=== PATIENT | female | born 1985 | race Caucasian/White ===

== ENCOUNTER 2019-01-03 12:07 | Inpatient (IN) | payer SELFPAY ==
[2019-01-03 12:51] VITALS: BMI 24.9
[2019-01-03] MEDS ORDERED: hydrALAZINE 20 MG/ML VIAL SLOW IVP PRN ×2 (13:22→23:06)
[2019-01-03] MEDS ORDERED: Ondansetron PF 4 MG/2 ML Vial IVP PRN ×3 (13:22→23:06)
[2019-01-03] MEDS ORDERED: Promethazine HCl 25 MG/ML VIAL IM PRN ×2 (13:22→18:53)
[2019-01-03] MEDS ORDERED: NS / Oxytocin 40 units/1000ml 1,000 ML IV PRN (13:29)
[2019-01-03] MEDS ORDERED: Bicitra 30 ML UDCUP PO SCH (13:30)
[2019-01-03] MEDS ORDERED: Penicillin G Potassium 5 MILL.UNITS in Sodium Chloride 0.9% 100 ML IVPB SCH (13:30)
[2019-01-03] MEDS: Lactated Ringer's 1,000 ML IV SCH ×2 (13:58→16:24)
[2019-01-03 14:54] LABS: Hemoglobin 11.3 g/dL (12.0-16.0); Mean Corpuscular HGB CONC 34.8 g/dL (32.0-36.0); Mean Corpuscular Hemoglobin 33.2 pg (27.0-31.0); Mean Corpuscular Volume 95.6 fL (78.0-98.0); White Blood Cell (WBC) Count 11.1 thou/uL (4.8-10.8)
[2019-01-03 15:14] LABS: HBSAg Index 0.16 S/CO (0-0.99); Hep B Surf Ag Non-Reactive S/CO (NonReactive)
[2019-01-03 15:15] LABS: Syphilis Antibody Nonreactive (Nonreactive); Syphilis Antibody Index 0.04 S/CO (<1.00 Non-Reactive)
[2019-01-03 15:20] LABS: Mean Platelet Volume 9.6 fL (7.4-10.4); Platelet Count 134 thou/uL (130-400); RBC Distribution Width 12.7 % (11.5-14.5)
[2019-01-03] MEDS ORDERED: Azithromycin 500 MG in Sodium Chloride 0.9% 250 ML 250 ML IVPB SCH (15:45)
[2019-01-03] MEDS ORDERED: CEFAZOLIN 2 GM in Premix Bag 1 BAG IVPB SCH (16:30)
[2019-01-03] MEDS: Penicillin G 2.5 MILL.units 2.5 MILL.UNITS in Premix Bag 1 BAG IVPB SCH (18:03)
[2019-01-03] MEDS ORDERED: Oxytocin 10 UNITS/ML VIAL ONE ×2 (18:44→19:24)
[2019-01-03] MEDS ORDERED: MORPHINE 5 MG/10 ML PF VIAL ONE (18:44)
[2019-01-03] MEDS ORDERED: Ondansetron PF 4 MG/2 ML Vial ONE (18:44)
[2019-01-03] MEDS ORDERED: ePHEDrine/0.9% NaCl/PF SYRINGE 50 mg/10 ml ONE (18:44)
[2019-01-03] MEDS ORDERED: Promethazine HCl 25 MG SUPP PR PRN (18:53)
[2019-01-03] MEDS ORDERED: diphenhydrAMINE 50 MG/ML VIAL IVP PRN (18:53)
[2019-01-03] MEDS ORDERED: Meperidine HCl/PF 25 MG/ML VIAL SLOW IVP PRN (18:53)
[2019-01-03] MEDS ORDERED: Naloxone HCl 0.4 mg/ml Vial IVP PRN ×2 (18:53)
[2019-01-03] MEDS ORDERED: Ketorolac Tromethamine 30 MG/ML VIAL IVP PRN (18:53)
[2019-01-03] MEDS ORDERED: HYDROmorphone 2 MG/ML VIAL SLOW IVP PRN (18:53)
[2019-01-03] MEDS ORDERED: Naloxone HCl 0.4 mg/ml Vial IV PRN (18:53)
[2019-01-03] MEDS ORDERED: Ondansetron HCl/PF 4 MG/2 ML Vial IVP PRN (18:53)
[2019-01-03] MEDS ORDERED: L&D-Morphine 4 MG/ML VIAL SLOW IVP PRN (18:53)
[2019-01-03] MEDS ORDERED: Communication Order-Pharmacy FS SCH (19:00)
[2019-01-03] MEDS ORDERED: Ketorolac Tromethamine 30 MG/ML VIAL IVP SCH (19:00)
[2019-01-03] MEDS ORDERED: PHENYLEPHRINE-NS 100 MCG/ML 10 ML SYRINGE ONE (19:08)
[2019-01-03] MEDS ORDERED: Dexamethasone 4 mg/ml Vial ONE (19:13)
[2019-01-03] MEDS ORDERED: Lanolin Ointment 7 GM TUBE TOP PRN (23:06)
[2019-01-03] MEDS ORDERED: diphenhydrAMINE 25 MG CAP PO PRN (23:06)
[2019-01-03] MEDS ORDERED: NS / Oxytocin 40 units/1000ml 1,000 ML IV SCH (23:06)
[2019-01-03] MEDS ORDERED: Simethicone Chewable 80 MG TAB PO PRN (23:06)
[2019-01-04] MEDS: Lactated Ringer's 1,000 ML IV SCH (02:08)
[2019-01-04 04:40] LABS: Hemoglobin 10.8 g/dL (12.0-16.0); Mean Corpuscular HGB CONC 34.8 g/dL (32.0-36.0); Mean Corpuscular Hemoglobin 33.5 pg (27.0-31.0); Mean Corpuscular Volume 96.3 fL (78.0-98.0); Mean Platelet Volume 9.9 fL (7.4-10.4); Platelet Count 121 thou/uL (130-400); RBC Distribution Width 12.7 % (11.5-14.5); Red Blood Cell (RBC) Count 3.23 mill/uL (4.20-5.40); White Blood Cell (WBC) Count 16.3 thou/uL (4.8-10.8)
[2019-01-04] MEDS ORDERED: Sodium Chloride 0.9% 10 ML ONE (05:46)
[2019-01-04] MEDS ORDERED: HYDROcodone/Acetaminophen 5/325 mg Tablet PO PRN (07:00)
[2019-01-04] MEDS ORDERED: Adacel (T-DAP) 0.5 ML SYRINGE IM ONE (09:00)
[2019-01-04] MEDS: Ferrous Sulfate 325 MG TAB PO SCH (09:30)
[2019-01-04] MEDS: Docusate Calcium (SURFAK) 240 MG CAP PO SCH ×2 (09:31→19:28)
[2019-01-04] MEDS: Prenatal Vitamin 1 TAB PO SCH (09:31)
[2019-01-04] MEDS: Penicillin G 2.5 MILL.units 2.5 MILL.UNITS in Premix Bag 1 BAG IVPB SCH (10:36)
[2019-01-04] MEDS: Ibuprofen 800 MG TAB PO SCH ×2 (12:38→20:56)
[2019-01-04] MEDS: HYDROcodone/Acetaminophen 5/325 mg Tablet PO PRN (19:27)
[2019-01-04] MEDS ORDERED: Phenazopyridine HCl 97.5 MG TABLET PO SCH (23:45)
[2019-01-05] MEDS: HYDROcodone/Acetaminophen 5/325 mg Tablet PO PRN ×3 (00:09→13:46)
[2019-01-05] MEDS: Ferrous Sulfate 325 MG TAB PO SCH ×2 (00:15→10:06)
[2019-01-05] MEDS: Ibuprofen 800 MG TAB PO SCH ×2 (06:09→13:46)
[2019-01-05] MEDS ORDERED: Phenazopyridine HCl 97.5 MG TABLET PO SCH (09:00)
[2019-01-05] MEDS: Docusate Calcium (SURFAK) 240 MG CAP PO SCH (10:05)
[2019-01-05] MEDS: Prenatal Vitamin 1 TAB PO SCH ×2 (10:06→10:32)
[2019-01-05] MEDS: Phenazopyridine HCl 97.5 MG TABLET PO SCH ×2 (10:11→16:04)
[2019-01-05 12:21] VITALS: BP 115/64; TEMP 98.5
--- NOTE | 2019-01-05 14:46 | OP ---
DATE OF PROCEDURE: 01/03/2019 RESIDENT SURGEON: Tea Lugo DO PREOPERATIVE DIAGNOSES: 1. Term intrauterine at 38 and 5/7th weeks. 2. Prior x2. 3. Spontaneous rupture of membranes (SROM). 4. Active labor. 5. Multiparity, desires permanent sterilization. POSTOPERATIVE DIAGNOSES: 1. Term intrauterine at 38 and 5/7th weeks. 2. Prior x2. 3. Spontaneous rupture of membranes (SROM). 4. Active labor. 5. Uterine scar dehiscence. PROCEDURES PERFORMED: 1. Repeat low transverse section. 2. Risk reduction, bilateral salpingectomy. ANESTHESIA: Spinal catheterization. FINDINGS: 1. Prior laboring with abdominal pain. 2. Uterine scar dehiscence. 3. Vigorous male infant, 7 pounds 1 ounce, Apgars 8 and 9. 4. Normal fallopian tubes and ovaries. COMPLICATIONS: None. SPECIMENS REMOVED: 1. Cord blood. 2. Bilateral fallopian tubes. BLOOD LOSS: Less than 400 mL. HISTORY AND INDICATIONS: Mrs. Elmira Rodriguez is a very pleasant 33-year-old white female, 5, para 2-0-2-2, who has followed in my clinic for obstetric care. Her has been complicated by thrombophilia with positive ACLA, Rh-negative blood type, positive group B strep, and prior x2Florencio Ku presented to the office on the morning of 01/03/2019. She had leakage of fluid after cervical examination and spontaneous rupture of membranes (SROM) was confirmed. She was admitted, was sent to Labor and Delivery for admission and monitoring. Throughout the afternoon, she began to contract and experience abdominal pain. There was a significant delay in performing her repeat secondary to anesthesia unavailability. The patient was taken to the OR on the evening of 01/03/2019. Surgical disclosures were signed and placed in the chart. Questions were answered to the patient's family satisfaction. DESCRIPTION OF PROCEDURE: After thorough consent and counseling, Mrs. Rodriguez was taken to the operating room and adequate level of anesthesia was obtained via spinal catheterization. The patient was then prepped and draped in usual sterile fashion for abdominal surgery. A Roy was placed in the bladder, which was noted to be draining clear urine. Attention was then turned to performing the outlined surgical procedure. A team time-out was performed per protocol. A Pfannenstiel incision was made, and the old scar was excised. The incision was carried sharply to the fascia, which was also sharply incised. The midline was identified, and the rectus muscles were retracted laterally. The abdominoperitoneal cavity was entered with usual safeguards carried out. A retractor was placed. It was noted that there was a significant uterine scar dehiscence with a peritoneal window noted. The scar had on the right-hand side, which is where the patient was complaining of "stabbing" abdominal pain. There was a 50% separation. A bladder flap was created on the vesicouterine peritoneum, and a bladder blade was then placed. Upon entering the amniotic sac, scant amount of clear amniotic fluid was visualized. The was noted to be vertex presentation in the occiput anterior position. Head was delivered, and baby was bulb suctioned on the abdomen. Nuchal cord x1 was easily reduced. Shoulders and body were then delivered in an atraumatic fashion. Cord was doubly clamped and cut. The was handed to the neonatology team in attendance for the delivery. The was a vigorous viable male, weighing 7 pounds 1 ounce with Apgars of 8 and 9, obtained at one and five minutes respectively. Cord blood was obtained. The placenta was manually removed from the uterus. The uterus was exteriorized, and good tone was noted. The uterine cavity was cleared of any remaining clot and fluids. The low-transverse incision was closed in a running locking ligature of #1 chromic. Multiple [id number]-ik-[id number] ligatures were placed on the right-hand side to facilitate strength, where the dehiscence was identified. The fallopian tubes and ovaries were otherwise normal. No other pathology was identified on the uterus. As noted, the patient has a significant family history for ovarian cancer. She is multiparity, desiring permanent sterilization and risk reduction salpingectomy has been approved. The fallopian tube was grasped on the right and followed to its fimbriated end. Rents were made in the mesosalpinx, and the blood vessels were identified. The vessels were doubly ligated using 0 plain suture. The tube was then grasped at the uterine cornua. The tube was doubly ligated with cornua, and the tube were completely excised. Same procedure was performed on the left. Good hemostasis was noted. Fallopian tubes were sent to Pathology for evaluation. All surgical sites were then inspected and noted to be hemostatic. The posterior cul-de-sac gutters were cleared of clot and fluid. Seprafilm was applied to the low-transverse incision and the anterior aspect of the uterus for adhesion prevention. The uterus was returned to the abdomen. It was noted that there was a large midline diastasis with extreme thinning of the lateral rectus muscles. The peritoneum was closed with a running ligature of 2-0 Vicryl suture. Extraperitoneum was reapproximated to bring the rectus muscles more in the midline. Lap, sponge, and needle counts were correct. The fascia was then closed with two ligatures of 0 Vicryl suture. Good fascial integrity was noted. The incision was irrigated with copious amount of warm normal saline. The subcutaneous tissue was closed with interrupted ligatures of 2-0 plain. The skin was then closed with subcuticular stitch of 4-0 Monocryl. Lap, sponge, and needle counts were correct x3. Estimated blood loss during the surgical procedure was less than 400 mL. QBL was performed and pending at this time. Team debriefing was performed. The patient was taken to the recovery room in good condition. Immediately following surgery, the patient and family were made aware of the surgical procedure and operative findings. Questions answered to their satisfaction. The patient and her were very appreciative of the care rendered here at [facility]. Mother and baby were doing well postoperatively. Job ID: [id number]
== END 2019-01-05 17:30 | disposition home or self-care (01) | DRG 785 ==
LOC: L&D/OP 12:07 → L&D 13:19 → 3SW 01-04 03:57
PROVIDERS: ADMIT Obstetrics & Gynecology; ATTEND Obstetrics & Gynecology
PROC: 10D00Z1 Extraction of Products of Conception, Low, Open Approach (ICD-10-PCS; principal; 2019-01-03)
PROC: 0UT70ZZ Resection of Bilateral Fallopian Tubes, Open Approach (ICD-10-PCS; 2019-01-03)
DX: O34.211 Maternal care for low transverse scar from previous cesarean delivery (principal); O99.824 Streptococcus B carrier state complicating childbirth; Z3A.38 38 weeks gestation of pregnancy; Z37.0 Single live birth; O90.0 Disruption of cesarean delivery wound
CPT/HCPCS: 36415; 51702; 85027; 85460; 85461; 86780; 86850; 86870; 86900; 86901; 87340; 88302; 88304; 90384; 96372; 99285; A4353; J0456; J0690; J1100; J1200; J1885; J2274; J2405; J2540; J2590; J3490; J7050